=== PATIENT | male | born 1985 | race Caucasian/White ===

== ENCOUNTER 2021-06-05 10:18 | Emergency (ER) | payer OTHER ==
[2021-06-05] MEDS ORDERED: Ketorolac 30 MG/ML SDV ONE (10:27)
[2021-06-05] MEDS ORDERED: Sodium Chloride 0.9% 10 ML Syringe FLUSH PRN (10:28)
[2021-06-05] MEDS ORDERED: Ketorolac 30 MG/ML SDV IVPUSH STA (10:28)
[2021-06-05] MEDS ORDERED: Morphine 2 MG/ML SYRINGE IVPUSH STA ×2 (10:28→12:05)
[2021-06-05] MEDS ORDERED: Sodium Chloride 0.9% 1,000 ML IV SCH (10:30)
[2021-06-05] MEDS ORDERED: Ondansetron 4 MG/2 ML SDV IVPUSH STA (10:33)
[2021-06-05 11:19] VITALS: BP 168/100; PULSE 87
--- NOTE | 2021-06-05 12:00 | EDM.PDOC ---
ED HPI GENERAL MEDICAL PROBLEM - General Chief Complaint: Flank Pain Stated Complaint: FLANK PAIN Time Seen by Provider: 06/05/21 10:25 Source of Information: Reports: Patient History Limitations: Reports: No Limitations - History of Present Illness INITIAL COMMENTS - FREE TEXT/NARRATIVE: Patient presented to the ED because of Rt flank pain which started at 4 am. the pain is sharp,3/10. there is N/V x1. There is no fever,chills or urinary s/s. He has a history of kidney stone which he passed spontaneously. Right Abdomen Pain Score (Numeric/FACES): 6 - Related Data Allergies Allergy/AdvReac Type Severity Reaction Status Date / Time No Known Allergies Allergy Verified 11/13/13 09:49 Home Meds: Home Meds Ibuprofen 800 mg PO TID PRN #30 tablet 06/05/21 [Rx] Tamsulosin [Tamsulosin 24 Hr] 0.4 mg PO DAILY #10 cap.er 06/05/21 [Rx] traMADol [Ultram] 100 mg PO TID #15 tab 06/05/21 [Rx] Past Medical History - Past Health History Medical/Surgical History: Denies Medical/Surgical History Genitourinary History: Reports: Renal Calculus Social & Family History - Family History Family Medical History: No Pertinent Family History - Tobacco Use Tobacco Use Status *Q: Never Tobacco User - Caffeine Use Caffeine Use: Reports: Coffee, Energy Drinks, Soda - Recreational Drug Use Recreational Drug Use: No ED ROS GENERAL - Review of Systems Review Of Systems: See Below Constitutional: Reports: No Symptoms HEENT: Reports: No Symptoms Respiratory: Reports: No Symptoms Cardiovascular: Reports: No Symptoms Endocrine: Reports: No Symptoms GI/Abdominal: Reports: Abdominal Pain : Reports: Flank Pain Musculoskeletal: Reports: No Symptoms Skin: Reports: No Symptoms Neurological: Reports: No Symptoms ED EXAM, GI/ABD - Physical Exam Exam: See Below Exam Limited By: No Limitations General Appearance: Alert, No Apparent Distress Ears: Normal External Exam, Normal Canal Nose: Normal Inspection, Normal Mucosa, No Blood Throat/Mouth: Normal Inspection, Normal Lips, Normal Teeth Head: Atraumatic, Normocephalic Neck: Normal Inspection, Supple, Non-Tender Respiratory/Chest: No Respiratory Distress, Lungs Clear, Normal Breath Sounds Cardiovascular: Normal Peripheral Pulses, Regular Rate, Rhythm, No Edema, No Gallop, No JVD, No Murmur GI/Abdominal Exam: Normal Bowel Sounds, Soft (Male) Exam: Other (RT CVAT) Back Exam: Normal Inspection, Full Range of Motion Extremities: Normal Inspection, Normal Range of Motion, Non-Tender Neurological: Alert, Oriented, CN II-XII Intact, Normal Cognition Psychiatric: Normal Affect, Normal Mood Course - Vital Signs Text/Narrative:: Lab and CT result was reviewed and discussed with patient NS 1 L bolus Zofran 4 mg IV x1 Toradol 30 mg IV x1 phine 2 mg IV x2 doses Last Recorded V/S: Last Vital Signs Temp 36.6 C 06/05/21 10:18 Pulse 87 06/05/21 10:18 Resp 24 H 06/05/21 10:18 BP 168/100 H 06/05/21 10:18 Pulse Ox 100 06/05/21 10:18 - Orders/Labs/Meds Orders: Active Orders 24 hr Category Date Time Status Abdomen Pelvis wo Cont [CT] Stat Exams 06/05/21 10:30 Ordered UA W/MICROSCOPIC [URIN] Stat Lab 06/05/21 10:28 Ordered Sodium Chloride 0.9% [Normal Saline] 1,000 ml Med 06/05/21 10:30 Active IV ASDIRECTED Sodium Chloride 0.9% [Saline Flush] Med 06/05/21 10:28 Active 10 ml FLUSH ASDIRECTED PRN Saline Lock Insert [OM.PC] Routine Oth 06/05/21 10:28 Ordered Medication Orders Sodium Chloride (Normal Saline) 1,000 mls @ 999 mls/hr IV ASDIRECTED ARNOLD Last Admin: 06/05/21 10:25 Dose: 999 mls/hr Documented by: KLARISSA Sodium Chloride (Sodium Chloride 0.9% 10 Ml Syringe) 10 ml FLUSH ASDIRECTED PRN PRN Reason: Keep Vein Open Labs: Laboratory Tests 06/05/21 06/05/21 Range/Units 10:40 10:40 WBC 7.0 (3.2-10.1) x10-3/uL RBC 5.39 (3.90-5.90) x10(6)uL Hgb 15.9 (12.9-17.7) g/dL Hct 46.1 (38.3-50.1) % MCV 85.5 (80.8-98.7) fL MCH 29.4 (27.0-33.3) pg MCHC 34.4 (28.7-35.3) g/dL RDW 12.5 (12.4-15.0) % Plt Count 258 (117-477) x10(3)uL MPV 9.7 (6.7-11.0) fL Neut % (Auto) 70.9 (40.3-71.8) % Lymph % (Auto) 16.4 (15.8-45.3) % Travis % (Auto) 8.6 (5.5-15.2) % Eos % (Auto) 2.9 (0.1-6.8) % Baso % (Auto) 1.2 (0.3-3.8) % Neut # (Auto) 5.0 (1.7-6.9) x10-3/uL Lymph # (Auto) 1.2 (0.5-4.5) x10-3/uL Travis # (Auto) 0.6 (0.0-1.2) x10-3/uL Eos # (Auto) 0.2 (0.0-0.6) x10-3/uL Baso # (Auto) 0.1 (0.0-0.3) x10-3/uL Sodium 141 (135-145) mmol/L Potassium 3.8 (3.5-5.3) mmol/L Chloride 103 (100-110) mmol/L Carbon Dioxide 24 (21-32) mmol/L BUN 15 (7-18) mg/dL Creatinine 1.1 (0.70-1.30) mg/dL Est Cr Clr Drug Dosing TNP Estimated GFR (MDRD) > 60 (>60) BUN/Creatinine Ratio 13.6 (9-20) Glucose 172 H (80-116) mg/dL Calcium 9.0 (8.6-10.2) mg/dL Meds: Medications Generic Name Dose Route Start Last Admin Trade Name Freq PRN Reason Stop Dose Admin Sodium Chloride 1,000 mls @ 999 mls/hr 06/05/21 10:30 06/05/21 10:25 Normal Saline IV 999 mls/hr ASDIRECTED ARNOLD Administration Sodium Chloride 10 ml 06/05/21 10:28 Sodium Chloride 0.9% 10 Ml Syringe FLUSH ASDIRECTED PRN Keep Vein Open Discontinued Medications Generic Name Dose Route Start Last Admin Trade Name Carlos PRN Reason Stop Dose Admin Ketorolac Tromethamine Confirm 06/05/21 10:27 06/05/21 10:36 Ketorolac 30 Mg/Ml Sdv Administered 06/05/21 10:28 Not Given Dose 30 mg .ROUTE .STK-MED ONE Ketorolac Tromethamine 30 mg 06/05/21 10:28 06/05/21 10:28 Ketorolac 30 Mg/Ml Sdv IVPUSH 06/05/21 10:29 30 mg NOW STA Administration Morphine Sulfate 2 mg 06/05/21 10:28 06/05/21 11:08 Morphine 2 Mg/Ml Syringe IVPUSH 06/05/21 10:29 2 mg NOW STA Administration Morphine Sulfate 2 mg 06/05/21 12:05 Morphine 2 Mg/Ml Syringe IVPUSH 06/05/21 12:06 NOW STA Ondansetron HCl 4 mg 06/05/21 10:33 06/05/21 11:05 Ondansetron 4 Mg/2 Ml Sdv IVPUSH 06/05/21 10:34 4 mg NOW STA Administration Departure - Departure Time of Disposition: 12:00 Disposition: Home, Self-Care 01 Condition: Good Clinical Impression: Nephrolithiasis - Discharge Information Prescriptions: Tamsulosin [Tamsulosin 24 Hr] 0.4 mg PO DAILY #10 cap.er Ibuprofen 800 mg PO TID PRN #30 tablet PRN Reason: Pain traMADol [Ultram] 100 mg PO TID #15 tab Instructions: Kidney Stones, [id number] Referrals: PCP,None [Primary Care Provider] - Forms: ED Department Discharge Additional Instructions: Please read discharge instructions on kidney stone Drink 2-3 liters of water daily Flomax 1 tablet daily until your pain is gone Take tramadol 100 mg,ibuprofen 800 mg and tylenol 1000 mg every 8 hours as needed for pain Follow up with your doctor this coming week Sepsis Event Note (ED) - Evaluation Sepsis Screening Result: No Definite Risk - Focused Exam Vital Signs: Vital Signs Temp Pulse Resp BP Pulse Ox 06/05/21 10:18 36.6 C 87 24 H 168/100 H 100 - My Orders Last 24 Hours: My Active Orders 06/05/21 10:28 UA W/MICROSCOPIC [URIN] Stat Sodium Chloride 0.9% [Saline Flush] 10 ml FLUSH ASDIRECTED PRN Saline Lock Insert [OM.PC] Routine 06/05/21 10:30 Abdomen Pelvis wo Cont [CT] Stat Sodium Chloride 0.9% [Normal Saline] 1,000 ml IV ASDIRECTED - Assessment/Plan Last 24 Hours: My Active Orders 06/05/21 10:28 UA W/MICROSCOPIC [URIN] Stat Sodium Chloride 0.9% [Saline Flush] 10 ml FLUSH ASDIRECTED PRN Saline Lock Insert [OM.PC] Routine 06/05/21 10:30 Abdomen Pelvis wo Cont [CT] Stat Sodium Chloride 0.9% [Normal Saline] 1,000 ml IV ASDIRECTED
== END 2021-06-05 12:23 | disposition home or self-care (01) ==
LOC: FB.ED 10:18
DX: N13.2 Hydronephrosis with renal and ureteral calculous obstruction (principal)
CPT/HCPCS: 36415; 74176; 80048; 85025; 96374; 96375; 96376; 99284; J1885; J2270; J2405; J7030

== ENCOUNTER 2024-08-08 09:29 | Emergency (ER) | payer OTHER ==
[2024-08-08] MEDS ORDERED: Naloxone 0.4 MG/ML SDV IVPUSH PRN (09:33)
[2024-08-08] MEDS: Ondansetron 4 MG/2 ML SDV IVPUSH ONE (09:45)
[2024-08-08] MEDS: Morphine 4 MG/ML VIAL IVPUSH ONE (09:47)
[2024-08-08] MEDS: Ketorolac 30 MG/ML SDV IVPUSH ONE (09:48)
[2024-08-08 09:56] VITALS: BP 174/88; PULSE 80
[2024-08-08 09:56] LABS: BASOPHILS ABSOLUTE AUTO 0.1 x10-3/uL (0.0-0.3); BASOPHILS PERCENT AUTO 0.7 % (0.3-3.8); EOSINOPHILS ABSOLUTE AUTO 0.2 x10-3/uL (0.0-0.6); EOSINOPHILS PERCENT AUTO 1.9 % (0.1-6.8); HEMATOCRIT 47.9 % (38.3-50.1); HEMOGLOBIN 16.5 g/dL (12.9-17.7); LYMPHOCYTES ABSOLUTE AUTO 1.2 x10-3/uL (0.5-4.5); LYMPHOCYTES PERCENT AUTO 13.6 % (15.8-45.3); MEAN CORPUSCULAR HEMOGLOBIN 29.2 pg (27.0-33.3); MEAN CORPUSCULAR HGB CONC 34.4 g/dL (28.7-35.3); MEAN CORPUSCULAR VOLUME 84.8 fL (80.8-98.7); MEAN PLATELET VOLUME 9.5 fL (6.7-11.0); MONOCYTES ABSOLUTE AUTO 0.5 x10-3/uL (0.0-1.2); MONOCYTES PERCENT AUTO 6.1 % (5.5-15.2); NEUTROPHILS PERCENT AUTO 77.7 % (40.3-71.8); PLATELET COUNT,PLT 259 x10(3)uL (117-477); RED BLOOD CELL COUNT 5.64 x10(6)uL (3.90-5.90)
[2024-08-08 09:57] LABS: BLOOD UREA NITROGEN,BUN 12 mg/dL (7-18); BUN/CREATININE RATIO 10.9 (9-20); CALCIUM 8.4 mg/dL (8.6-10.2); CARBON DIOXIDE,CO2 25 mmol/L (21-32); CHLORIDE,CL 103 mmol/L (100-110); CREATININE 1.1 mg/dL (0.70-1.30); ESTIMATED GFR 87 mL/min (>60); GLUCOSE RANDOM 145 mg/dL (80-116); SODIUM,NA 141 mmol/L (135-145)
[2024-08-08] MEDS: Sodium Chloride 0.9% 1,000 ML IV SCH (10:18)
[2024-08-08] MEDS: Prochlorperazine 10 MG/2 ML SDV IVPUSH ONE (11:19)
[2024-08-08] MEDS: HYDROmorphone 2 MG/ML SDV IVPUSH ONE (11:40)
== END 2024-08-08 11:51 | disposition home or self-care (01) ==
LOC: FB.ED 09:29
DX: N13.2 Hydronephrosis with renal and ureteral calculous obstruction (principal)
CPT/HCPCS: 74176; 80048; 85025; 96361; 96374; 96375; 99284; J0780; J1170; J1885; J2270; J2405; J7030